=== PATIENT | female | born 1965 | race Caucasian/White ===

== ENCOUNTER 2022-12-17 08:01 | Emergency (ER) | payer OTHER, SELFPAY ==
[2022-12-17 08:14] VITALS: BP 101/66; PULSE 84; RESP 16; TEMP 36.9; O2SAT 99
[2022-12-17 08:18] VITALS: BP 101/66; PULSE 84; RESP 16; TEMP 36.9; O2SAT 99
--- NOTE | 2022-12-17 08:24 | ED.WOUNDLAC ---
HPI - Wound/Laceration General Chief Complaint: Wound/Laceration Stated Complaint: INFECTED FINGER Time Seen by Provider: 12/17/22 08:19 Source: patient and RN notes reviewed Mode of arrival: ambulatory Limitations: no limitations History of Present Illness HPI narrative: Patient presents today complaining of redness and swelling to the dorsum of the right 2nd finger x2 days. She has a small abrasion there as well, but is unsure of the etiology. Denies numbness or tingling. Denies pain at rest, but this increases with touching of the area. She has tried no [id number] interventions prior to arrival. History of lupus for which she takes Plaquenil and Cellcept. Related Data Home Medications Medication Instructions Recorded Confirmed gelatin capsules (empty) (Capsule 1 cap PO DIRECTED 12/17/22 12/17/22 Claudia-Snap #3 (gelatin) capsule) hydroxychloroquine 200 mg tablet 200 mg PO DIRECTED 12/17/22 12/17/22 mycophenolate mofetil 250 mg 250 mg PO DIRECTED 12/17/22 12/17/22 capsule Allergies Allergy/AdvReac Type Severity Reaction Status Date / Time Penicillins Allergy Rash Verified 12/17/22 08:12 Review of Systems Review of Systems: CONSTITUTIONAL: Denies body aches, fever, chills, or sweats. EYES: Denies visual changes, redness, or discharge. ENT: Denies rhinorrhea, congestion, sore throat, or otalgia. CARDIOVASCULAR: Denies chest pain, palpitations, or edema. RESPIRATORY: Denies cough or dyspnea. GASTROINTESTINAL: Denies abdominal pain, nausea, vomiting, or diarrhea. GENITOURINARY: Denies dysuria or hematuria. SKIN: Denies rash, itching, or wounds. MUSCULOSKELETAL: Denies back pain. + redness and swelling to right 2nd finger NEUROLOGIC: Denies headache, numbness, tingling, or weakness. PSYCH: Denies depression or anxiety. [facility] Past Medical History Medical History (Updated 12/17/22 @ 08:33 by Mckenna Soto, CLEANER ASSISTANT, ) Lupus Comments At time of signature, I have reviewed and agree with nursing past medical, surgical, social and family history unless otherwise noted. Please see nursing chart for further information. There is no relevant family history pertinent to the presenting complaint Exam Narrative: GENERAL: Well-appearing, well-nourished, and in no acute distress. HEAD: Normocephalic, atraumatic. EYES: EOMI. No redness or drainage. Conjunctivae normal. ENT: Mucous membranes pink and moist. NECK: Normal AROM. CHEST: No respiratory distress. EXTREMITIES: A 3 mm very superficial linear abrasion to the dorsum of the right 2nd finger just proximal to the fingernail with surrounding mild edema and erythema. Mildly tender to palpation. No fluctuance or surrounding induration. Distal sensation intact. Capillary refill normal. Full range of motion of the finger. SKIN: Warm, dry, no rash. Capillary refill normal. Normal skin turgor. NEURO: No focal deficits. Alert and oriented x3. Gait steady. PSYCH: Normal affect. No signs of depression or anxiety. Course Course Level of Care: Express Care Visit Vital Signs Vital signs: Vital Signs Temperature 98.4 F 12/17/22 08:14 Pulse Rate 84 12/17/22 08:14 Respiratory Rate 16 12/17/22 08:14 Blood Pressure 101/66 12/17/22 08:14 Pulse Oximetry 99 12/17/22 08:14 Temperature 98.4 F 12/17/22 08:18 Pulse Rate 84 12/17/22 08:18 Respiratory Rate 16 12/17/22 08:18 Blood Pressure 101/66 12/17/22 08:18 Pulse Oximetry 99 12/17/22 08:18 Reviewed MDM - Wound/Laceration MDM Narrative Medical decision making narrative: Patient has mild cellulitis. Will treat with short course of Keflex. Anticipatory guidance given. Differential Diagnosis Differential diagnosis: Likely laceration, abrasion and other (Paronychia) Critical Care Time Critical Care Time Critical Care Time: No Discharge Plan Discharge Clinical Impression: Cellulitis of finger of right hand Patient Disposition: H
== END 2022-12-17 08:36 | disposition home or self-care (01) ==
PROVIDERS: Emergency Provider Nurse Practitioner; PCP Family Medicine
DX: L03.011 Cellulitis of right finger (principal); Z79.899 Other long term (current) drug therapy
CPT/HCPCS: 99213; G0463

== ENCOUNTER 2023-06-16 10:01 | Outpatient (CLI) | payer OTHER, SELFPAY ==
--- NOTE | 2023-06-25 17:06 | WPDSIXMINUTE ---
Six Minute Walk Procedure Procedure Performed Pulmonary Stress Test (6 min walk) Six Minute Walk Six Minute Walk: This is a 6 minute walk test. The test was performed and interpreted in accordance with the 2014 ERS/ATS task force guidelines. Findings: The patient's resting room air oxygen saturation measured by pulse oximetry was 98% and heart rate was 78 bpm. Patient ambulated for 518 meters and oxygen saturation remained 93 to 99%. Heart rate at the end of the study was 108 bpm. The patient did not qualify for supplemental oxygen at rest or with ambulation. There are no prior studies for comparison.
--- NOTE | 2023-06-25 17:06 | WPDPFTINT ---
PFT Procedure Performed PFT Procedure Performed Plethysmography (Lung Vol) Diffusing Cap (DLCO) Flow Vol Loop Spirometry w/o Bronchodil PFT Interpretation This is a pulmonary function test with spirometry, plethysmography and diffusing capacity. The test was performed and results interpreted in accordance with the 2019 and 2005 ATS/ERS Task Force guidelines respectively using the Global Lung Function Initiative-2012 reference equations. Patient demonstrated good effort and cooperation. Reproducibility criteria were met. The quality of the spirometry maneuver was Grade A. Findings: Spirometry: The contour the inspiratory and expiratory flow tracing are normal. The FVC is 1.82 L, 66% predicted. The FEV1 is 1.45 L, 65% predicted. The FEV1: FVC ratio is 80%. Plethysmography: The total lung capacity is 2.98 L, 67% predicted. The functional residual capacity is 1.99 L, 81% predicted. The residual volume is 1.13 L, 65% predicted. Diffusing capacity: The diffusing capacity unadjusted for hemoglobin and carboxyhemoglobin is 10.6, 52% predicted. The diffusing capacity adjusted for alveolar volume is 3.26, 70% predicted. Impression: There is a moderate restrictive ventilatory abnormality. The spirometry is normal without evidence of an obstructive abnormality. The diffusing capacity unadjusted for hemoglobin and carboxyhemoglobin is moderately decreased and remains mildly decreased when adjusted for alveolar volume. There are no prior studies for comparison
== END 2023-06-16 10:02 | disposition home or self-care (01) ==
PROVIDERS: PCP Family Medicine
DX: J84.9 Interstitial pulmonary disease, unspecified (principal)
CPT/HCPCS: 94375; 94618; 94726; 94729

== ENCOUNTER 2023-12-17 08:45 | Outpatient (CLI) | payer OTHER, SELFPAY ==
--- NOTE | 2023-12-17 11:03 | WPDSIXMINUTE ---
Six Minute Walk Procedure Procedure Performed Pulmonary Stress Test (6 min walk) Six Minute Walk Six Minute Walk: This is a 6 minute walk test. The test was performed and interpreted in accordance with the 2014 ERS/ATS task force guidelines. Findings: The patient's resting room air oxygen saturation measured by pulse oximetry was 100% and heart rate was 80 bpm. Patient ambulated for 457 meters and oxygen saturation remained 93 to 99%. Heart rate at the end of the study was 113 bpm. The patient did not qualify for supplemental oxygen at rest or with ambulation. There are no prior studies for comparison.
--- NOTE | 2023-12-17 11:04 | WPDPFTINT ---
PFT Procedure Performed PFT Procedure Performed Spirometry with Pre/Post Bronchodilator Plethysmography (Lung Vol) Diffusing Cap (DLCO) Flow Vol Loop PFT Interpretation This is a pulmonary function test with spirometry, plethysmography and diffusing capacity. The test was performed and results interpreted in accordance with the 2019 and 2005 ATS/ERS Task Force guidelines respectively using the Global Lung Function Initiative-2012 reference equations. Patient demonstrated good effort and cooperation. Reproducibility criteria were met. The quality of the pre bronchodilator spirometry maneuver was Grade A and post bronchodilator spirometry maneuver was Grade A. Findings: Spirometry: The contour the inspiratory and expiratory flow tracing are normal. The FVC is 2.13 L, 77% predicted. The FEV1 is 1.71 L, 78% predicted. The FEV1: FVC ratio is 80%. Plethysmography: The total lung capacity is 3.28 L, 74% predicted. The functional residual capacity is 1.80 L, 73% predicted. The residual volume is 1.12 L, 64% predicted. Diffusing capacity: The diffusing capacity unadjusted for hemoglobin and carboxyhemoglobin is 10.1, 50% predicted. The diffusing capacity adjusted for alveolar volume is 3.32, 72% predicted. In comparison to previous pulmonary function testing on 06/16/2023 the FVC has increased from 1.82 L to 2.13 L. The FEV1 has increased from 1.45 L to 1.71 L. the total lung capacity is unchanged from 2.98 L to 3.28 L. The functional residual capacity is unchanged from 1.99 L to 1.80 L. The residual volume is unchanged from 1.13 L to 1.12 L. The diffusing capacity unadjusted for hemoglobin and carboxyhemoglobin is unchanged from 10.6 to 10.1. The diffusing capacity adjusted for alveolar volume is unchanged from 3.26 to 3.32. Impression: There is a mild restrictive ventilatory abnormality with a normal FEV1. The spirometry is normal without evidence of an obstructive abnormality. The diffusing capacity unadjusted for hemoglobin and carboxyhemoglobin is moderately decreased and normalizes when adjusted for alveolar volume. In comparison to previous pulmonary function testing on 06/16/2023 there has been a greater than anticipated time dependent increase in the FVC and FEV1 with no significant change in the total lung capacity, functional residual capacity, residual volume or diffusing capacity. Clinical correlation is recommended.
== END 2023-12-17 08:46 | disposition home or self-care (01) ==
LOC: ANHPFT 08:46
PROVIDERS: PCP Family Medicine
DX: J84.9 Interstitial pulmonary disease, unspecified (principal); J98.4 Other disorders of lung
CPT/HCPCS: 94375; 94618; 94726; 94729

== ENCOUNTER 2024-05-26 19:24 | Emergency (ER) | payer OTHER, SELFPAY ==
--- NOTE | 2024-05-26 19:25 | ED_ITS ---
HPI - Wound/Laceration General Chief Complaint: Wound/Laceration Stated Complaint: Cut Finger Source: patient and RN notes reviewed Mode of arrival: ambulatory Limitations: no limitations History of Present Illness HPI narrative: Patient is a 58-year-old female who presents to the [facility] with complaints of a superficial laceration to the left index finger last night at 8pm. Patient states that she was opening packages and used a knife to help open the package. She presents with a 1 cm superficial laceration to the left index finger with no active bleeding. Distal motor and neurovascular status intact. Patient states that she had a tele doc appointment immediately following the incident and they prescribed her an antibiotic ointment. Related Data Home Medications ?Medication ?Instructions ?Recorded ?Confirmed ?Last Taken ?Type gelatin capsules (empty) (Capsule 1 cap PO DIRECTED 12/17/22 12/17/22 Unknown History Claudia-Snap #3 (gelatin) capsule) hydroxychloroquine 200 mg tablet 200 mg PO DIRECTED 12/17/22 12/17/22 Unknown History mycophenolate mofetil 250 mg 250 mg PO DIRECTED 12/17/22 05/26/24 Unknown His tory capsule ZIPRASIDONE 05/26/24 Unknown History levothyroxine 100 mcg tablet mcg 05/26/24 Unknown History omeprazole 40 mg capsule,delayed mg 05/26/24 Unknown History release Allergies Allergy/AdvReac Type Severity Reaction Status Date / Time Penicillins Allergy Rash Verified 05/26/24 19:32 latex AdvReac Mild Rash Verified 05/26/24 19:32 Review of Systems Review of Systems: CONSTITUTIONAL: Denies fever, chills, or sweats. EYES: Denies visual changes, redness, or discharge. ENT: Denies otalgia and sore throat CARDIOVASCULAR: Denies chest pain, palpitations, or edema. RESPIRATORY: Denies cough or dyspnea. GASTROINTESTINAL: Denies abdominal pain, nausea, vomiting, or diarrhea. GENITOURINARY: Denies dysuria or hematuria. SKIN: Reports laceration to the left index finger. MUSCULOSKELETAL: Denies back pain, joint pain, or myalgia. NEUROLOGIC: Denies headache, numbness, or weakness. Pertinent positives per HPI. [facility] Past Medical History Medical History Lupus Comments At the time of my signature, I reviewed and agree with the nursing past medical, surgical, social, and family history. There is no relevant family history pertinent to the patient complaint. Exam Narrative: GENERAL: This is a well-nourished, well-developed patient, in no apparent distress. HEAD: normocephalic, atraumatic. EYES: PERRL. Sclera clear/white. Vision is grossly intact. EARS: External ears normal, auditory canals clear and without drainage, TMs normal without perforation. Hearing grossly intact. NOSE: External nose normal with no obvious nasal discharge, nares without redness, no rhinorrhea. THROAT: Mucous membranes moist, posterior pharynx clear. NECK: Neck supple, non-tender without lymphadenopathy, masses or thyromegaly. CARDIOVASCULAR: Regular rate and rhythm without murmurs, gallops, or rubs. RESPIRATORY: Clear to auscultation. Breath sounds equal bilaterally. No wheezes, rales, or rhonchi. GASTROINTESTINAL: Abdomen soft, non-tender, nondistended. Bowel sounds are active. No hepato-splenomegaly, or palpable masses. No guarding. SKIN: 1 cm superficial laceration to the left index finger with no active bleeding. Distal motor and vascular status intact. Cap refill is normal. NEURO: awake, alert, and oriented to person, place and time. There were no obvious focal neurologic abnormalities. Course Course Level of Care: Express Care Visit Vital Signs Vital signs: Vital Signs Temperature 97.9 F 05/26/24 19:35 Pulse Rate 90 05/26/24 19:35 Respiratory Rate 16 05/26/24 19:35 Blood Pressure 99/74 L 05/26/24 19:35 Pulse Oximetry 99 05/26/24 19:35 Temperature 97.9 F 05/26/24 19:35 Pulse Rate 90 05/26/24 19:35 Respiratory Rate 16 05/26/24 19:35 Blood Pressure 99/74 L 05/26/24 19:35 Pulse Oximetry 99 05/26/24 19:35 Reviewed MDM - Wound/Laceration MDM Narrative Medical decision making narrative: 1 cm superficial laceration noted to the left index finger that does not require closure. The wound is 24 hours old and has started good wound healing. Wound was cleaned with wound cleanser and triple antibiotic ointment applied. Band-Aid applied. Wound care instructions reviewed with patient who verbalized understanding. Differential Diagnosis Differential diagnosis: Likely laceration, abscess and avulsion of skin Critical Care Time Critical Care Time Critical Care Time: No Discharge Plan Discharge Clinical Impression: Laceration of left index finger Qualifiers: Encounter type: initial encounter Damage to nail status: without damage Foreign body presence: without foreign body Qualified Code(s): S61.211A - Laceration without foreign body of left index finger without damage to nail, initial encounter Patient Disposition: Home, Self-Care Condition: Stable Instructions: Laceration (ED) Additional Instructions: Keep wound clean and dry. Monitor for signs of infection. Follow-up with primary care physician as needed. Patient Language: Belarusian Prescriptions: No Action omeprazole 40 mg capsule,delayed release(DR/EC) levothyroxine 100 mcg tablet ZIPRASIDONE mycophenolate mofetil 250 mg capsule 250 mg PO DIRECTED Capsule Claudia-Snap #3 (gelatin) Capsule 1 cap PO DIRECTED hydroxychloroquine 200 mg tablet 200 mg PO DIRECTED Follow-up/Referrals: PHYSICIAN,CHARGEBACK SPECIALIST [Primary Care Provider] - Time of Disposition: 19:38
[2024-05-26 19:35] VITALS: BP 99/74; PULSE 90; RESP 16; TEMP 36.6; O2SAT 99
== END 2024-05-26 19:41 | disposition home or self-care (01) ==
PROVIDERS: Emergency Provider Nurse Practitioner
DX: S61.211A Laceration without foreign body of left index finger without damage to nail, initial encounter (principal); W26.0XXA Contact with knife, initial encounter; M32.9 Systemic lupus erythematosus, unspecified; K21.9 Gastro-esophageal reflux disease without esophagitis; E03.9 Hypothyroidism, unspecified
CPT/HCPCS: 99212; G0463

== ENCOUNTER 2024-06-09 13:42 | Outpatient (CLI) | payer OTHER, SELFPAY ==
--- NOTE | ~2024-06-09 | US_ITS ---
EXAMINATION: US thyroid DATE: 06/09/2024 14:26 INDICATION: Hypothyroidism TECHNIQUE: Multiple ultrasound images of the thyroid were obtained. COMPARISON: None. FINDINGS: The right thyroid lobe measures 2.6 x 1.0 x 0.5 cm. The left thyroid lobe measures 2.5 x 0.8 x 0.6 c m. Thyroid isthmus measures 1 mm in thickness. No discrete nodules identified. Heterogeneous decrease d echogenicity with coarsened echotexture and mildly increased vascular flow on color Doppler through out the thyroid. IMPRESSION: 1. Multiple heterogeneous thyroid with coarsened echotexture but without discrete nodules which sugge sts sequela of chronic thyroiditis. Reviewed, dictated and finalized at location A. IMPRESSION: 1. Multiple heterogeneous thyroid with coarsened echotexture but without discre te nodules which suggests sequela of chronic thyroiditis.
--- OUTSIDE RECORDS SUMMARY | 2024-06-09 14:05 | XMS_ITS ---
Author Organization Case Management Address [address] [place] [address] Care Team Providers Care Kier Boiler Name Role Phone MAHENDRA CELINA Unavailable [phone] REASON FOR VISIT mh eval: Medication management Encounters Encounter Location Date Provider Diagnosis Ricki Darcy [address] [address] 02/14/2024 CELINA MCCRAY Plan Of Treatment No Information Progress Notes * Samantha BARRIGADOB:[birth year] (58 yo F)Acc No.[id number]:02/14/2024 Mental Health Evaluation Vis it Patient: Samantha DIALLO Provider: Otoniel Mccray MD :1965 A ge:58 Y S ex:Female Date:02/14/2024 Phone: Address:[facility] [address] , [address], [facility] Subjective: * Chief Complaints: * 1 . mh eval: Medication management. * Medical History: Objective: Assessment: Plan: * Treatment: * Images: * Electronic signature of DARCI MCCRAY MD on 06/09/2024 at 02:04 PM CDT Sign off status: Pending * Provider: Otoniel Mccray MD Date: 04/15/2023 Generated for Sam monzon/José/Santaitting on: 0 06/09/2024 02:04 PM CDT
--- OUTSIDE RECORDS SUMMARY | 2024-06-09 14:05 | XMS_ITS | Patient Health Record ---
Author Organization Case Management Address [address] [place] [phone] Care Team Providers Care Prestressed Concrete Laborer Name Role Phone CELINA MCCRAY Unavailable [phone] Reason For Referral No Information Plan Of Treatment No Information
--- OUTSIDE RECORDS SUMMARY | 2024-06-09 14:05 | XMS_ITS | Continuity of Care Document ---
Author Organization [facility] Address [address] [place] [phone] Phone Care Team Providers Care Awake Overnight Monitor Name Role Phone Ugalde Micaela MELENDEZ Unavailable Unavailable Allergies, Adverse Reactions, Alerts Substance Reaction Status Criticality CAT HAIR STANDARDIZED ALLERGENIC EXTRACT Active No Information Penicillins Active No Information aspirin Active No Information Medications Medication Instructions Dosage Effective Dates (start - stop) Status Comments SINGULAIR (unknown strength) take 1 tablet by oral route every day in the evening Not Available - Active ZYRTEC (unknown strength) Not Available - Active KATARINA (unknown strength) take 1 tablet by oral route 2 times every day Not Available - Active OMEPRAZOLE (unknown strength) take 2 capsule by oral route every day before a meal Not Available - Active PAXIL (unknown strength) take 1 tablet by oral route every day Not Available - Active GEODON (unknown strength) take 1 capsule by oral route 2 times every day with food Not Available - Active WELLBUTRIN (unknown strength) take 1 tablet by oral route 3 times every day Not Available - Active LEVOTHYROXINE SODIUM (unknown strength) take 1 tablet by oral route every day Not Available - Active Procedures Procedure Date EYE EXAM, NEW PATIENT INTER REFRACTION Advance Directives Directive Yes / No Effective Date File Name No Information Encounters Encounter Description Practice Location Reason(s) For Visit Diagnoses Date Provider Providers Copied on Encounter [facility], [address] [place] [address], [id number], [place] tel:[phone] Primary Care [address] MyopiaMyopia Ugalde Micaela. [facility] [place], [place], [id number], [place]. tel:[phone] Referring Provider: [facility] Bubba Philippe, [address] [place] [address] [place], [address]. tel:[phone] Family History Family Member Type Diagnosis Age At Onset Father Problem (finding) gout Maternal aunt Problem (finding) Diabetes mellitus Maternal grandmother Problem (finding) Diabetes mellit us Mother Problem (finding) Spinal Stenosis Payers Payer name Insurance type Covered libertarian ID Authoriza tion(s) No Information Social History Type Description Quantity Date Captured Comments Alcohol Use Details Unknown Caffeine Use Details Unknown Tobacco Use Status No Information Smoking Status Former smoker Smoking Tobacco Use Details Cigarette: Years Used 8 Cigarette: 1 Packs per day, Pack Year: Sex Female Vital Signs Date / Time: Height Weight BMI Pulse Rate Blood Pressure Temperature Respiratory Rate Body Surface Area Head Circumference Head Circ. Percentile Wt./Luis M. Percentile BMI percentile Pulse Ox Inhaled Ox 11:02 AM 61.00 in 112.00 lbs 21.1 6 kg/m eter (2) 69 /min 92/62 mm[Hg] Chief Complaint And Reason For Visit No Information Reason For Referral Reason For Referral No Information History Of Present Illness Encounter Date Complaint History Of Prese nt Illness No Information Functional Status Date Functional Assessmen t No Information Instructions Date Instruction Additional Kieshar edmond - Return in 3 weeks with Ugalde K for DFE. Related to Myopia Compound Myopic Asti gmatism OD, OS, Presbyopia - Released SRx for FTW. Pt educated in different multifocal types. Pt deferred dilation; RTC for dilated fundus exam Monday, September 16, 2013. Related to Myopia Assessments Type Assessment Date No Information Patient Care Teams Name Effective Dates (start - stop) Status Members No Information
--- OUTSIDE RECORDS SUMMARY | 2024-06-09 14:05 | XMS_ITS | Clinical Summary ---
Author Organization [facility] Address [address] [place] [address] Care Team Providers Care Aerial Sprayer Name Role Phone Dajuan Loyd MD Primary Care Provider [phone] Source Comments [facility],non-owned Affiliates and Associated Physician Practices is amultiple site organization consisting of ambulatory clinics and hospital sitesin [place], [place], [place] and [place]. This disclosure is being madepursuant to the Care Everywhere program and may not contain all information available regarding this patient. Last updated 17.[facility] Allergies Active Allergy Reactions Criticality Noted Date Comments Adhesive Sensitivity Urticaria Medium 06/30/2017 Reported that after having blood drawn she broke out in hives. Either paper tape or Coban was used. Aspirin Unknown 06/25/2017 States mother told her she may be allergic to ASA Penicillins Rash Medium 06/25/2017 all cillins Medications * Be aware that medications may not be up to date on this document. Alwaysverify current medications with the patient. Medication Sig Dispensed Refills Start Date End Date Status ziprasidone (GEODON) 40 MG capsule Take 40 mg by mouth 3 times daily Active omeprazole (PRILOSEC) 40 MG capsule Take 40 mg by mouth daily before breakfast Active levothyroxine (SYNTHROID) 112 MCG tablet Take 112 mcg by mouth daily before breakfast Active propranolol (INDERAL) 10 MG tabletIndications:anx iety Take 10-20 mg by mouth once daily as needed Reasons: anxiety Active Social History Tobacco Use Types Packs/Day Years Used Date Smoking Tobacco: Former Cigarettes Q uit: 06/26/1995 Smokeless Tobacco: Never Alcohol Use Standard Drinks/Week Comments No 0 (1 standard drink = 0.6 oz pur e alcohol) Sex and Gender Information Value Date Recorded Sex Assigned at Not on file Gender Identity Not on file Sexual Orientation Not on file Last Filed Vital Signs Vital Sign Reading Time Taken Comments Blood Pressure 100/70 07/08/2017 12:15 PM CDT Pulse 75 07/08/2017 12:15 PM CDT Temperature 36.4 C (97.6 F) 07/08/2017 11:38 AM CDT Respiratory Rate 15 07/08/2017 12:15 PM CDT Oxygen Saturation 100% 07/08/2017 12:15 PM CDT Inhaled Oxygen Concentration - - Weight 53.3 kg (117 lb 9.6 oz) 07/08/2017 7:29 A M CDT Height 154.9 cm (5' 1 ) 07/08/2017 7:29 AM CDT Body Mass Index 22.22 07/08/2017 7:29 AM CDT Plan of Treatment Health Maintenance Due Date Last Done Comments COLOGUARD (AGES 45-75) - COL ON CA SCREENING 1964 COLON MONITORING 1964 COLONOSCOPY - COLON CA SCREENING 1964 CT COLONOGRAPHY - COLON CA SCREENING 1964 Colorectal Cancer Screening 1964 FIT - COLON CA SCREENING 1964 FLEX SIG - COLON CA SCREENING 1964 LIPID TESTING 1964 MAMMOGRAM 1964 PAP SMEAR 1964 HIV SCREENING 11/26/1979 HEPATITIS C SCREENING 11/21/1982 DTAP/TDAP/TD VACCINES (1 - Tdap) 11/26/1983 HEPATITIS B VACCINE (1 of 3 - 19+ 3-dose series) 11/26/1983 PNEUMOCOCCAL VACCINE 50+ (1 of 1 - PCV) 2014 ZOSTER VACCINE (1 of 2) 2014 COVID-19 VACCINE ( - 2023-2 5 season) 2023 INFLUENZA VACCINE (#1) 2023 DEPRESSION SCREENING 03/23/2024 HIB VACCINE Aged Out No longer eligi ble based on patient's age to complete this topic HPV VACCINE Aged Out No longer eligi ble based on patient's age to complete this topic MENINGOCOCCAL (Group B) VACC INE SHARED DECISION-MAKING Aged Out No longer eligibl e based on patient's age to complete this topic MENINGOCOCCAL GROUPS A/C/Y/W VACCINE Aged Out No longer eligible b ased on patient's age to complete this topic PNEUMOCOCCAL VACCINE Aged Out No long er eligible based on patient's age to complete this topic Medical Devices Implanted Type Area Sport Intern Device Identifier Shelf Expiration Date Model / Serial / Lot Germain Bone Void 1cc Biocartilage - [id number] Implanted:Qty: 1 on 07/08/2017 by Brent Kraus MD at [facility] Left: Ankle [employer] 04/02/2022 [id number] / [id number] / Tisseel Implanted:Qty: 1 on 07/08/2017 by Brent Kraus MD at [facility] Left: Ankle [facility] 12/20/2018 [id number] / / [id number] Advance Directives Documents on File Type Date Recorded Patient Hearing Instrument Specialist Expl anation Adv Directive/Living Will/POA 07/08/2017 Care Teams Aerial Sprayer Relationship Specialty Start Date End Date Dajuan Loyd MD [facility] [address] [place], [place] [id number] PCP - General Family Medicine 06/23/17
== END 2024-06-09 13:43 | disposition home or self-care (01) ==
PROVIDERS: Visit Provider Nurse Practitioner Family
DX: E03.9 Hypothyroidism, unspecified (principal); E04.9 Nontoxic goiter, unspecified
CPT/HCPCS: 76536

== ENCOUNTER 2024-11-25 15:48 | Emergency (ER) | payer OTHER, SELFPAY ==
--- NOTE | ~2024-11-25 | XR_ITS ---
XR knee RT 3V 11/25/2024 16:30 Indication: Right knee pain Procedure: 3 views right knee Comparison: No prior studies for comparison. Findings: No fracture, subluxation or dislocation. No significant joint effusion. No joint space narrowing. No foreign bodies. Impression: 1: No acute fracture. Reviewed, dictated and finalized at location O. Impression: 1: No acute fracture.
--- NOTE | 2024-11-25 15:57 | ED.LOWEXIN ---
HPI - Extremity Injury (Lower) General Chief Complaint: Extremity Injury, Lower Stated Complaint: Injured R Knee Time Seen by Provider: 11/25/24 15:58 Source: patient, RN notes reviewed and old records reviewed Mode of arrival: ambulatory Limitations: no limitations History of Present Illness HPI Narrative: 59-year-old female presents to the [facility] with right knee pain. Patient states that she was walking, tripped and fell to her knees and then to her hands happened just prior to arrival here. Patient with a Band-Aid to the abrasion of the right knee. Has full range of motion of all joints. Denies hitting head. No loss of consciousness. No neck or back pain Onset (ago): minute(s) Treatments prior to arrival: bandage Related Data Home Medications ?Medication ?Instructions ?Recorded ?Confirmed ?Last Taken ?Type gelatin capsules (empty) (Capsule 1 cap PO DIRECTED 12/17/22 12/17/22 Unknown History Claudia-Snap #3 (gelatin) capsule) ZIPRASIDONE 05/26/24 Unknown History levothyroxine 100 mcg tablet mcg 05/26/24 Unknown History omeprazole 40 mg capsule,delayed mg 05/26/24 Unknown History release CellCept 11/26/24 Unknown History Allergies Allergy/AdvReac Type Severity Reaction Status Date / Time Penicillins Allergy Rash Verified 11/26/24 09:48 latex AdvReac Mild Rash Verified 11/26/24 09:48 Review of Systems Review of Systems: All systems reviewed & are unremarkable except as noted in HPI and below Constitutional: Constitutional: Reports no additional constitutional complaints Musculoskeletal: Musculoskeletal: Reports as per HPI Integumentary/Breasts: Skin/Breast: Reports as per HPI PMFSH Past Medical History Medical History Lupus Comments At the time of my signature, I reviewed and agree with the nursing past medical, surgical, social, and family history. There is no relevant family history pertinent to the patient complaint. Exam Const: General: cooperative, healthy appearing, comfortable, no acute distress, well developed, alert and well nourished Nutritional Appearance: well nourished Orientation/consciousness: patient oriented x3 Limitations: no limitations HENMT: Head: normal to inspection Eyes: General: appearance normal, both eyes and all related structures Alignment and Position: alignment normal Neck: Neck: normal visual inspection, full ROM, no lymphadenopathy and no meningeal signs Chest: Chest palpation & inspection: normal inspection of the chest Resp: Effort & Inspection: normal respiratory effort and able to speak in complete sentences Cardio: Rate: regular rate Back/Spine/Pelvis: Back: no CVA tenderness and No back tenderness Skin: General skin exam: normal color and no rashes or lesions noted Wounds: wounds noted (Right anterior knee 2 x 2 abrasion) Neuro: General: patient oriented x3, gait normal, moves all extremities and no meningeal signs Cognition (Neuro): normal cognition Speech: normal speech Gait exam (Neuro): Normal gait present Extrem: General: normal to inspection, full ROM, capillary refill normal and normal gait Right lower extremity: knee Details: tenderness, normal ROM and abrasion (2x2); no swelling Psych: Appearance: grossly normal and well kempt Mental Status: mental status grossly normal Speech and movement: Normal speech and movement present and Clear speech present Affect: normal affect Attitude: cooperative Course Course Level of Care: Express Care Visit Vital Signs Vital signs: Vital Signs Temperature 98.4 F 11/25/24 15:59 Pulse Rate 87 11/25/24 15:59 Respiratory Rate 18 11/25/24 15:59 Blood Pressure 112/83 11/25/24 15:59 Pulse Oximetry 100 11/25/24 15:59 Oxygen Delivery Room Air 11/25/24 15:59 Temperature 98.4 F 11/25/24 15:59 Pulse Rate 87 11/25/24 15:59 Respiratory Rate 18 11/25/24 15:59 Blood Pressure 112/83 11/25/24 15:59 Pulse Oximetry 100 11/25/24 15:59 Oxygen Delivery Room Air 11/25/24 15:59 Reviewed MDM - Extremity Injury (Lower) MDM Narrative Medical decision making narrative: Patient sitting in exam room. Patient is nontoxic, vitals are stable. Patient presents with right knee pain. Denies any other pain after a trip and fall. Abrasion was cleaned in clinic. X-rays negative Patient appropriate for outpatient treatment with close follow-up Discharge instructions reviewed with patient, as well as provided in writing per nursing staff. The instructions also include specific and strict return/GO TO THE ER as well as f/u information. All questions have been answered, and the patient deny any further questions with discharge and discharge plan. Some parts of this dictation were generated by voice recognition software and may contain typographical and/or grammatical inaccuracies. Differential Diagnosis Differential diagnosis: Likely other (Patella fracture, contusion, abrasion) Imaging Data Radiologist's impression: XR knee RT 3V 11/25/2024 16:30 Indication: Right knee pain Procedure: 3 views right knee Comparison: No prior studies for comparison. Findings: No fracture, subluxation or dislocation. No significant joint effusion. No joint space narrowing. No foreign bodies. Impression: 1: No acute fracture. Critical Care Time Critical Care Time Critical Care Time: No Discharge Plan Discharge Clinical Impression: Contusion of knee, right, Abrasion of knee, right Patient Disposition: Home Condition: Stable Instructions: Antibiotic Form, Contusion in Adults (ED), Abrasion (ED) Additional Instructions: Change the dressing twice a day. When changing the dressing wash with warm soapy water, pat dry and apply a small amount of bacitracin At the evening dressing change try to leave it open to air for 4-5 hours. Your Xray did not show a fracture. Ice should be applied to help reduce swelling. It can be used for 20 to 30 minutes, every 2-3 hours while awake. Do not apply ice directly to your skin. You can alternate ibuprofen 600mg and Tylenol 650mg every 4 hours as needed for pain Please schedule a follow-up visit with your personal physician for further evaluation and treatment within 2 weeks especially if symptoms persist. For new or worsening symptoms go directly to the emergency room Patient Language: Bulgarian Prescriptions: No Action omeprazole 40 mg capsule,delayed release(DR/EC) levothyroxine 100 mcg tablet ZIPRASIDONE Capsule Claudia-Snap #3 (gelatin) Capsule 1 cap PO DIRECTED CellCept Follow-up/Referrals: PHYSICIAN,TRANSFORMATION ARCHITECT [Primary Care Provider, Internal Medicine] Stand Alone Forms: Work/School Release IP Time of Disposition: 16:42
[2024-11-25 15:59] VITALS: BP 112/83; PULSE 87; RESP 18; TEMP 36.9; O2SAT 100
== END 2024-11-25 16:50 | disposition home or self-care (01) ==
PROVIDERS: Emergency Provider Nurse Practitioner
DX: S80.01XA Contusion of right knee, initial encounter (principal); S80.211A Abrasion, right knee, initial encounter; W01.0XXA Fall on same level from slipping, tripping and stumbling without subsequent striking against object, initial encounter; M32.9 Systemic lupus erythematosus, unspecified; J84.9 Interstitial pulmonary disease, unspecified; K21.9 Gastro-esophageal reflux disease without esophagitis; E03.9 Hypothyroidism, unspecified
CPT/HCPCS: 73562; 99213; G0463

== ENCOUNTER 2024-11-26 09:37 | Emergency (ER) | payer OTHER, SELFPAY ==
[2024-11-26 09:49] VITALS: BP 111/69; PULSE 89; RESP 16; TEMP 36.2; O2SAT 100
--- NOTE | 2024-11-26 10:10 | ED_ITS ---
HPI - Extremity Injury (Lower) General Chief Complaint: Extremity Injury, Lower Stated Complaint: R KNEE INJURY Source: patient Mode of arrival: ambulatory Limitations: no limitations History of Present Illness HPI Narrative: 59-year-old female presented for complaint of right knee pain and abrasion following an injury yesterday. Patient states she tripped and fell and landed with knee on a landscaping rock. Patient was seen in clinic yesterday, Xray showed no fracture, she was advised daily dressing changes. Patient states she would like to have the knee looked at again and wanted to review the discharge instructions because ?I was out of it. ? Pt has been wearing the ANDERSON wrap and using a nonstick dressing over the abrasion. Denies increase in pain, swelling, numbness, tingling weakness or deformity. Related Data Home Medications ?Medication ?Instructions ?Recorded ?Confirmed ?Last Taken ?Type gelatin capsules (empty) (Capsule 1 cap PO DIRECTED 12/17/22 12/17/22 Unknown History Claudia-Snap #3 (gelatin) capsule) ZIPRASIDONE 05/26/24 Unknown History levothyroxine 100 mcg tablet mcg 05/26/24 Unknown His tory omeprazole 40 mg capsule,delayed mg 05/26/24 Unknown History release CellCept 11/26/24 Unknown History Allergies Allergy/AdvReac Type Severity Reaction Status Date / Time Penicillins Allergy Rash Verified 11/26/24 09:48 latex AdvReac Mild Rash Verified 11/26/24 09:48 Review of Systems Review of Systems: CONSTITUTIONAL: Denies body aches, fever, chills EYES: Denies visual changes ENT: Denies rhinorrhea, congestion CARDIOVASCULAR: Denies chest pain, palpitations, or edema. RESPIRATORY: Denies cough or dyspnea. SKIN: Denies rash, itching, or wounds. MUSCULOSKELETAL: reports right knee pain NEUROLOGIC: Denies headache, numbness, tingling, or weakness. All systems reviewed & are unremarkable except as noted in HPI and below PMFSH Past Medical History Medical History Lupus Comments At time of signature, I have reviewed and agree with nursing past medical, surgical, social and family history unless otherwise noted. Please see nursing chart for further information. There is no relevant family history pertinent to the presenting complaint Exam Narrative: GENERAL: Well-appearing CHEST: Speaks in full sentences. No respiratory distress. HEART: Regular rate and rhythm. Normal and equal peripheral pulses. EXTREMITIES: Right knee slightly limited range of motion. Mild prepatellar soft tissue erythema and swelling around an abrasion. No drainage. No point tenderness. pulse palpable and equal bilaterally, skin warm, dry, pink. Capillary refill less than 3 seconds. SKIN: Warm, dry, no rash. NEURO: Alert and oriented x3. PSYCH: Normal mood and affect Course Course Emergency Course: Patient is aware of diagnosis, understands and agrees to treatment plan. Anticipatory guidance given. Patient agrees to follow-up as directed and is aware of reasons to seek care at the emergency department. Portions of this record may have been created with voice recognition software Level of Care: Express Care Visit Vital Signs Vital signs: Vital Signs Temperature 97.2 F L 11/26/24 09:49 Pulse Rate 89 11/26/24 09:49 Respiratory Rate 16 11/26/24 09:49 Blood Pressure 111/69 11/26/24 09:49 Pulse Oximetry 100 11/26/24 09:49 Temperature 97.2 F L 11/26/24 09:49 Pulse Rate 89 11/26/24 09:49 Respiratory Rate 16 11/26/24 09:49 Blood Pressure 111/69 11/26/24 09:49 Pulse Oximetry 100 11/26/24 09:49 Reviewed MDM - Extremity Injury (Lower) MDM Narrative Medical decision making narrative: Discussed physical exam findings and yesterday's neg knee xray. New bandaid applied and wrapped with her ANDERSON. Advised supportive measures and signs/symptoms to go to the ER. Pt is appropriate for outpt treatment and f/u. Differential Diagnosis Differential diagnosis: Likely other (osteoarthritis, patella dislocation, patellar tendonitis, tendon rupture, gout, bakers cyst, septic bursitis, dvt, tibial plateau fracture, ligament injury, abrasion, contusion) Discharge Plan Discharge Clinical Impression: Abrasion of knee, right Patient Disposition: Home Condition: Stable Instructions: Antibiotic Form, Abrasion (ED) Additional Instructions: Keep the area clean and dry - cleanse with warm water and mild soap and allow to fully dry. Ok to apply neosporin to the site Keep it open to air (no bandages) when you are sitting and it is not at risk for infection. Take Tylenol or Motrin as needed for pain Apply ice pack as needed throughout the day Activity as tolerated. You can wear the ANDERSON wrap as needed when walking Watch for worsening symptoms including pain, redness, swelling, streaking, pus/drainage, fever. Go to the ER with any of these symptoms or concerns. Follow up with primary care provider in 1 week as needed. Patient Language: Emirati Prescriptions: No Action omeprazole 40 mg capsule,delayed release(DR/EC) levothyroxine 100 mcg tablet ZIPRASIDONE Capsule Claudia-Snap #3 (gelatin) Capsule 1 cap PO DIRECTED CellCept Follow-up/Referrals: PHYSICIAN,PROFESSIONAL SYSTEM ADMINISTRATOR [Primary Care Provider, Internal Medicine] Stand Alone Forms: Work/School Release IP
== END 2024-11-26 10:40 | disposition home or self-care (01) ==
PROVIDERS: Emergency Provider Nurse Practitioner Family
DX: S80.211A Abrasion, right knee, initial encounter (principal); W01.198A Fall on same level from slipping, tripping and stumbling with subsequent striking against other object, initial encounter; M32.9 Systemic lupus erythematosus, unspecified; E03.9 Hypothyroidism, unspecified; K21.9 Gastro-esophageal reflux disease without esophagitis; J84.9 Interstitial pulmonary disease, unspecified
CPT/HCPCS: 99212; G0463

== ENCOUNTER 2024-11-30 15:26 | Emergency (ER) | payer OTHER, SELFPAY ==
[2024-11-30 15:37] VITALS: BP 108/81; PULSE 93; RESP 16; TEMP 37; O2SAT 100
--- NOTE | 2024-11-30 15:38 | ED.SKABFB ---
HPI - Skin/Abscess/Foreign Bdy General Chief complaint: Extremity Injury, Lower Stated complaint: R KNEE PAIN Time Seen by Provider: 11/30/24 16:11 Source: patient and RN notes reviewed Mode of arrival: ambulatory Limitations: dementia History of Present Illness HPI narrative: 59-year-old female presents with concern for an abrasion to her right knee. She reports she fell on November 25 and hurt her right knee. She reports she has been using a bandage. She reports it is little red and tender. She reports there is some small amount of drainage on the bandage. She denies fever, chills, body aches, sweats. MD complaint: other (Redness) Related Data Home Medications ?Medication ?Instructions ?Recorded ?Confirmed ?Last Taken ?Type gelatin capsules (empty) (Capsule 1 cap PO DIRECTED 12/17/22 12/17/22 Unknown History Claudia-Snap #3 (gelatin) capsule) ZIPRASIDONE 05/26/24 Unknown History levothyroxine 100 mcg tablet mcg 05/26/24 Unknown History omeprazole 40 mg capsule,delayed mg 05/26/24 Unknown History release CellCept 11/26/24 Unknown History Allergies Allergy/AdvReac Type Severity Reaction Status Date / Time Penicillins Allergy Rash Verified 11/30/24 15:48 latex AdvReac Mild Rash Verified 11/30/24 15:48 Review of Systems Review of Systems: CONSTITUTIONAL: Denies malaise, chills, sweats, or fever. EYES: Denies redness, or discharge. ENT: Denies rhinorrhea, congestion, swollen lips, swollen tongue CARDIOVASCULAR: Denies chest pain, palpitations, or edema. RESPIRATORY: Denies cough or dyspnea. GASTROINTESTINAL: Denies abdominal pain, nausea, vomiting SKIN: Reports redness, swelling around the abrasion on her right knee. Denies purulent drainage, vesicles, bullae, numbness, pain beyond proportion MUSCULOSKELETAL: Denies joint pain or myalgia. NEUROLOGIC: Denies headache. All systems reviewed & are unremarkable except as noted in HPI and below PMFSH Past Medical History Medical History Lupus Comments At time of signature, agree with nursing past medical, surgical, social and family history. There is no relevant family history pertinent to the presenting complaint Exam Narrative: GENERAL: Well-appearing, well-nourished, and in no acute distress. HEAD: Normocephalic, atraumatic. EYES: PERRLA, conjunctivae clear ENT: Mucous membranes moist. NECK: Supple. No lymphadenopathy CHEST: Clear to auscultation. No respiratory distress. HEART: Regular rate and rhythm. SKIN: Warm, dry. 1 cm of Erythema, induration, tenderness, warmth with sharp margins noted surrounding a scabbed abrasion on the right knee, no drainage noted. No vesicles, bullae, necrosis, ecchymosis, crepitus noted. NEURO: Alert and oriented x3. PSYCH: Normal mood and affect Course Course Emergency Course: Patient is aware of diagnosis, understands and agrees to treatment plan. Anticipatory guidance given. Patient agrees to follow-up as directed and is aware of reasons to seek care at the emergency department. Portions of this record may have been created with voice recognition software Level of Care: Express Care Visit Vital Signs Vital signs: Vital Signs Temperature 98.6 F 11/30/24 15:37 Pulse Rate 93 11/30/24 15:37 Respiratory Rate 16 11/30/24 15:37 Blood Pressure 108/81 11/30/24 15:37 Pulse Oximetry 100 11/30/24 15:37 Temperature 98.6 F 11/30/24 15:37 Pulse Rate 93 11/30/24 15:37 Respiratory Rate 16 11/30/24 15:37 Blood Pressure 108/81 11/30/24 15:37 Pulse Oximetry 100 11/30/24 15:37 Reviewed. MDM - Skin/Abscess/Foreign Bdy MDM Narrative Medical decision making narrative: I evaluated this in the [facility] care. History is obtained from patient who is an independent historian and physical exam was performed.? Available medical records were reviewed. ? Exam findings and relevant testing show no acute concerns or changes; patient is non-toxic appearing and is in no distress. Does not appear at this time to be erythema multiforme, bullous, SJS, TEN; no evidence at this time to suggest RMSF, NSTI, endocarditis or Lyme disease; patient looks well, nontoxic and is tolerating oral intake; no neurologic signs or symptoms; no headache, photophobia or neck pain; afebrile.? Patient does not have history of of penetrating trauma, laceration, blunt trauma, recent surgery, immunosuppression, malignancy, obesity, alcoholism, corticosteroid use.? Discussed the importance of follow-up, patient agrees; question, cellulitis versus necrotizing soft tissue infection versus abscess.?? Patient is appropriate for outpatient treatment and follow-up. Critical Care Time Critical Care Time Critical Care Time: No Discharge Plan Discharge Clinical Impression: Abrasion Patient Disposition: Home Condition: Stable Instructions: Antibiotic Form Additional Instructions: Apply warm compresses for 15 minutes 60 times a day. Monitor the redness surrounding your wound. If it goes beyond the markings of your wound order please fill the antibiotic and start taking it. If it gets smaller within next 2-3 days you do not need to start the antibiotic. You can apply Neosporin and a bandage when your going to be out of your house or an area where the wound might get contaminated. You can take Tylenol as needed for pain. Patient Language: Sao [place]an Prescriptions: New doxycycline monohydrate 100 mg tablet 100 mg PO BID 7 Days Qty: 14 0RF No Action omeprazole 40 mg capsule,delayed release(DR/EC) levothyroxine 100 mcg tablet ZIPRASIDONE Capsule Claudia-Snap #3 (gelatin) Capsule 1 cap PO DIRECTED CellCept Follow-up/Referrals: PHYSICIAN,CULTURAL CENTRE MANAGER [Primary Care Provider, Internal Medicine] Time of Disposition: 16:20
== END 2024-11-30 16:20 | disposition home or self-care (01) ==
PROVIDERS: Emergency Provider Nurse Practitioner
DX: S80.211A Abrasion, right knee, initial encounter (principal); W19.XXXA Unspecified fall, initial encounter
CPT/HCPCS: 99213; G0463

== ENCOUNTER 2024-12-02 17:33 | Emergency (ER) | payer OTHER, SELFPAY ==
[2024-12-02 17:53] VITALS: BP 129/78; PULSE 94; RESP 16; TEMP 37.1; O2SAT 100
--- NOTE | 2024-12-02 18:44 | ED_ITS ---
HPI - Extremity Problem General Chief complaint: Extremity Problem,Nontraumatic Stated complaint: CHILLS/SINUS & KNEE INJURY RECHECK Time Seen by Provider: 12/02/24 18:30 Source: patient and RN notes reviewed Mode of arrival: ambulatory Limitations: no limitations History of Present Illness HPI Narrative: 59-year-old female presents [facility] complaining of right knee wound recheck and upper respiratory symptoms since 2 hours ago. Patient has been here 4 times in last week for wound recheck of her right knee. Patient finished a course of doxycycline is concerned it might be infected. Patient denies any redness, swelling, pain, or drainage. Patient has been apply bacitracin and doing warm compresses. Patient also reports that she has sneezing, scratchy throat, runny nose, chills for 2 hours. Patient has any fevers, body aches, nausea, vomiting, diarrhea, abdominal pain, chest pain, difficulty breathing, or other symptoms. Related Data Home Medications ?Medication ?Instructions ?Recorded ?Confirmed ?Last Taken ?Type gelatin capsules (empty) (Capsule 1 cap PO DIRECTED 12/17/22 12/17/22 Unknown History Claudia-Snap #3 (gelatin) capsule) ZIPRASIDONE 05/26/24 Unknown History levothyroxine 100 mcg tablet mcg 05/26/24 Unknown His tory omeprazole 40 mg capsule,delayed mg 05/26/24 Unknown History release CellCept 11/26/24 Unknown History Allergies Allergy/AdvReac Type Severity Reaction Status Date / Time Penicillins Allergy Rash Verified 12/02/24 18:23 latex AdvReac Mild Rash Verified 12/02/24 18:23 Review of Systems Review of Systems: CONSTITUTIONAL: Denies fever, body aches, or sweats. Positive for chills. EYES: Denies visual changes, redness, or discharge. ENT: Denies congestion sore throat, or otalgia. Positive for rhinorrhea, sneezing. CARDIOVASCULAR: Denies chest pain, palpitations, or edema. RESPIRATORY: Denies cough or dyspnea. GASTROINTESTINAL: Denies abdominal pain, nausea, vomiting, or diarrhea. GENITOURINARY: Denies dysuria or hematuria. SKIN: Denies rash or itching. Positive for wound. MUSCULOSKELETAL: Denies back pain, joint pain, or myalgia. NEUROLOGIC: Denies headache, numbness, or weakness. PSYCHIATRIC: Denies anxiety or depression. All other systems reviewed are negative, except as documented in HPI. [facility] Past Medical History Medical History Lupus Comments At the time of my signature, I reviewed and agree with the nursing past medical, surgical, social, and family history. There is no relevant family history pertinent to the patient complaint. Exam Narrative: GENERAL: This is a well-nourished, well-developed adult, in no apparent distress. They are non ill-appearing, nontoxic appearing. HEAD: normocephalic, atraumatic. EYES: Sclera clear/white. Conjunctiva normal. Vision is grossly intact. Extraocular movements intact EARS: External ears normal, auditory canals clear and without drainage, TMs normal without perforation. Hearing grossly intact. NOSE: External nose normal with no obvious nasal discharge, nasal turbinates without redness, no rhinorrhea. THROAT: Mucous membranes moist, posterior pharynx clear, without erythema or swelling. Uvula midline. Postnasal drip present. NECK: Neck supple, non-tender without lymphadenopathy, masses or thyromegaly. CARDIOVASCULAR: Regular rate and rhythm without murmurs, gallops, or rubs. RESPIRATORY: Clear to auscultation. Breath sounds equal bilaterally. No wheezes, rales, or rhonchi. SKIN: Right knee: Abrasion present wound appears moist. Nontender to palpate. Mild redness around the wound. No induration, no exudate area of fluctuance. Redness is not extending past the border that was marked with a skin marker. NEURO: awake, alert, and oriented to person, place and time. There were no obvious focal neurologic abnormalities. EXTREMITIES: No joint tenderness, effusion, or edema noted. Course Course Emergency Course: Portions of this record may have been created with voice recognition software Level of Care: Express Care Visit Vital Signs Vital signs: Vital Signs Temperature 98.8 F 12/02/24 17:53 Pulse Rate 94 12/02/24 17:53 Respiratory Rate 16 12/02/24 17:53 Blood Pressure 129/78 12/02/24 17:53 Pulse Oximetry 100 12/02/24 17:53 Temperature 98.8 F 12/02/24 17:53 Pulse Rate 94 12/02/24 17:53 Respiratory Rate 16 12/02/24 17:53 Blood Pressure 129/78 12/02/24 17:53 Pulse Oximetry 100 12/02/24 17:53 Oxygen Delivery Room Air 12/02/24 18:24 Reviewed MDM - Extremity (Nontraumatic) MDM Narrative Medical decision making narrative: Wound appears to be healing well, no evidence of infection, wound appears to be too moist. Advised patient stop using bacitracin warm compresses. Advised patient to wash daily with mild soap and water and keep it dry and covered during the day and open it to air at night. No strong evidence of upper respiratory infection. However symptoms just started could be the early onset of an upper respiratory infection or allergic rhinitis. Advised [id number] therapy for patient's symptoms for now. Discussed physical exam findings. Advised supportive measures and signs/symptoms to go to the ER. Pt is appropriate for outpt treatment and f/u. Differential Diagnosis Differential diagnosis: Likely other (Cellulitis, wound check, upper respiratory infection, allergic rhinitis, sneezing) Critical Care Time Critical Care Time Critical Care Time: No Discharge Plan Discharge Clinical Impression: Visit for wound check, Upper respiratory symptom Patient Disposition: Home Condition: Stable Instructions: Upper Respiratory Infection (ED) Additional Instructions: Wash the wound daily with mild soap water. Does not appear infected. Keep the wound dry and covered during the day with a Band-Aid. Leave it open to air at night to allow the scab formation. Follow-up PCP in 1 week for wound recheck. It is too early to test for your symptoms as a started only a couple hours ago. It may be allergies or could be the start of an upper respiratory infection. Take Tylenol or ibuprofen as needed for pain or fevers. Follow instructions on the bottle. Go to the ER if he developed worsening redness, swelling, pain, fevers, chest pain, difficulty breathing, or any serious concerns. Patient Language: Ukrainian Prescriptions: No Action omeprazole 40 mg capsule,delayed release(DR/EC) levothyroxine 100 mcg tablet ZIPRASIDONE Capsule Claudia-Snap #3 (gelatin) Capsule 1 cap PO DIRECTED CellCept doxycycline monohydrate 100 mg tablet 100 mg PO BID 7 Days Qty: 14 0RF Follow-up/Referrals: PHYSICIAN,USER SUPPORT ANALYST SUPERVISOR [Primary Care Provider, Internal Medicine] Time of Disposition: 18:41
== END 2024-12-02 18:50 | disposition home or self-care (01) ==
CPT/HCPCS: 99211; G0463

== ENCOUNTER 2024-12-05 03:21 | Emergency (ER) | payer OTHER, SELFPAY ==
[2024-12-05 03:31] VITALS: BP 130/66; PULSE 91; RESP 17; O2SAT 100
[2024-12-05 03:32] VITALS: PULSE 85; RESP 17; O2SAT 100
[2024-12-05 03:34] VITALS: BP 130/66; PULSE 80; RESP 18; TEMP 36.6; O2SAT 99
--- NOTE | 2024-12-05 03:45 | PC.NURSE ---
Upon COVID swabbing pt, pt reported that this RN did not complete the swab properly and stated I have had that test done multiple times and it has never felt like that. This RN completed the appropriate nasopharyngeal swab with Kandice RN in the room as a witness.
--- NOTE | 2024-12-05 03:51 | ED.GENADULT ---
HPI - General Adult General Chief complaint: Upper Respiratory Infection Stated complaint: SINUS DRAINAGE History of Present Illness HPI narrative: Patient is a 5-year-old female who presents the emergency department this morning via EMS from home complaining of URI symptoms. Patient states that for the past 3 days she has been having some allergy symptoms including nasal congestion and cough. She is concerned that there may be mold in her home that she may have been exposed to. Otherwise denies any additional symptoms or concerns. Related Data Home Medications ?Medication ?Instructions ?Recorded ?Confirmed ?Last Taken ?Type gelatin capsules (empty) (Capsule 1 cap PO DIRECTED 12/17/22 12/17/22 Unknown History Claudia-Snap #3 (gelatin) capsule) ZIPRASIDONE 05/26/24 Unknown History levothyroxine 100 mcg tablet mcg 05/26/24 Unknown History omeprazole 40 mg capsule,delayed mg 05/26/24 Unknown History release CellCept 11/26/24 Unknown History Allergies Allergy/AdvReac Type Severity Reaction Status Date / Time Penicillins Allergy Rash Verified 12/02/24 18:23 latex AdvReac Mild Rash Verified 12/02/24 18:23 Review of Systems Review of Systems: All systems are reviewed and are negative unless stated otherwise in the [facility] Past Medical History Medical History Lupus Exam Narrative: General: Alert, awake, afebrile, in no acute distress. HEENT: PERRL, no rhinorrhea, no post nasal drip, oropharynx clear, clear bilateral tympanic membranes. Neck: Trachea midline, no JVD, no lymphadenopathy. Cardiovascular: Regular rate and rhythm, no murmurs, rubs or gallops, no peripheral edema. Respiratory: Clear to auscultation bilaterally, no tachypnea, no wheezing, no rhonchi, no rubs, no respiratory distress. Abdomen: Soft, nontender, nondistended, no rebound, no guarding, no peritoneal signs. Musculoskeletal: No joint swelling or deformity, normal muscle tone. Skin: No rashes or petechia, no signs of infection. Psychiatric: Alert and oriented, normal behavior and judgment for situation. Neurological: Alert and oriented to person, place, and time. Follows all commands. No focal deficits, speech is clear and fluent. Course Vital Signs Vital signs: Vital Signs Pulse Rate 91 12/05/24 03:31 Respiratory Rate 17 12/05/24 03:31 Blood Pressure 130/66 12/05/24 03:31 Pulse Oximetry 100 12/05/24 03:31 Temperature 97.8 F 12/05/24 03:34 Pulse Rate 76 12/05/24 04:16 Respiratory Rate 20 12/05/24 04:16 Blood Pressure 102/65 12/05/24 04:16 Pulse Oximetry 100 12/05/24 04:16 Oxygen Delivery Room Air 12/05/24 03:34 Medical Decision Making MDM Narrative Medical decision making narrative: The patient was evaluated by myself in the emergency department. History is obtained from patient who is an independent historian and physical exam was performed. External medical records were reviewed at this time. Viral swabs were obtained and noted to be negative for COVID/influenza/RSV. Differential diagnosis considerations include acute viral syndrome, URI, bacterial versus viral pharyngitis, seasonal allergies, otitis media. Comorbidities impacting this visit include none. I have evaluated and discussed social determinants of health with the patient that could potentially impact subsequent diagnosis and treatment plans. On repeat assessment of the patient, reevaluation revealed that the patient is doing well and is in no acute distress. Patient symptoms have remained stable since she arrived to our emergency department. Repeat vital signs were all reviewed and noted to be stable. Differential diagnosis and treatment plan were discussed with the patient at bedside. Patient agrees with discussion and after shared medical decision making agrees with discharge. All questions were answered to the patient's satisfaction. Patient will follow up with her PCP in 3-5 days. Patient was provided with strict return precautions and instructed to return to the emergency department if any new or worsening symptoms develop. The patient was discharged in stable condition. Vital Signs Vital Signs: Vital Signs Pulse Rate 91 12/05/24 03:31 Respiratory Rate 17 12/05/24 03:31 Blood Pressure 130/66 12/05/24 03:31 Pulse Oximetry 100 12/05/24 03:31 Temperature 97.8 F 12/05/24 03:34 Pulse Rate 76 12/05/24 04:16 Respiratory Rate 20 12/05/24 04:16 Blood Pressure 102/65 12/05/24 04:16 Pulse Oximetry 100 12/05/24 04:16 Oxygen Delivery Room Air 12/05/24 03:34 Lab Data Labs: Lab Results 12/05/24 Range/Units 03:30 Influenza A (RT-PCR) Negative (Negative) Influenza B (RT-PCR) Negative (Negative) RSV (RT-PCR) Negative (Negative) SARS-CoV-2 RNA (RT-PCR) Negative (Negative) Discharge Plan Discharge Clinical Impression: Upper respiratory infection Patient Disposition: Home Condition: Stable Instructions: Antibiotic Form, Upper Respiratory Infection (DC) Additional Instructions: Please follow-up with your family doctor within the next 3-5 days. Return to ED if any new or worsening symptoms develop. He is [id number] medications such as decongestants to help with your symptoms. Patient Language: Malagasy Prescriptions: No Action omeprazole 40 mg capsule,delayed release(DR/EC) levothyroxine 100 mcg tablet ZIPRASIDONE Capsule Claudia-Snap #3 (gelatin) Capsule 1 cap PO DIRECTED CellCept doxycycline monohydrate 100 mg tablet 100 mg PO BID 7 Days Qty: 14 0RF Follow-up/Referrals: David Rodriges [Other] - 3 Days Time of Disposition: 03:52
[2024-12-05 04:00] VITALS: PULSE 80; RESP 15; O2SAT 99
[2024-12-05 04:11] LABS: Influenza A QL RT-PCR Negative (Negative); Influenza B QL RT-PCR Negative (Negative); RSV RNA, RT-PCR Negative (Negative); SARS-CoV-2 RNA PCR Negative (Negative)
[2024-12-05 04:15] VITALS: PULSE 78; RESP 22; O2SAT 99
[2024-12-05 04:16] VITALS: BP 102/65; PULSE 76; RESP 20; O2SAT 100
== END 2024-12-05 04:45 | disposition home or self-care (01) ==
PROVIDERS: Emergency Provider Emergency Medicine
DX: J06.9 Acute upper respiratory infection, unspecified (principal); Z20.822 Contact with and (suspected) exposure to COVID-19
CPT/HCPCS: 87637; 99283